=== PATIENT | female | born 1955 | race Caucasian/White ===

== ENCOUNTER 2020-09-02 08:09 | Outpatient (REF) | payer MEDICARE, SELFPAY ==
--- NOTE | 2020-09-02 | US_ITS ---
EXAMINATION: ULTRASOUND ABDOMEN COMPRESSION WITH ELASTOGRAPHY CLINICAL INFORMATION: Elevated liver enzymes, abnormal CT scan on CT scan COMPARISON: CT scan of the abdomen and pelvis dated 05/13/2020. TECHNIQUE: Multiple 2-D grayscale and color Doppler ultrasound images of the abdomen were obtained along with the elastography. FINDINGS: Pancreas: Visualized pancreas is unremarkable. The tail is obscured by bowel gas shadowing. Abdominal aorta: Unremarkable. Inferior vena cava: Unremarkable. Liver: Surface nodularity and mild increased echotexture without focal abnormality. Elastography: Inconsistent values (IQR - Median 0.62). Median IQR value was 1.69 in the range of mild to moderate/F2-F3. Gallbladder: Unremarkable. Common bile duct: 0.3 cm. IMPRESSION: 1. Hepatic steatosis and cirrhosis correlates with CT findings. Fibrosis stage is in the range of mild to moderate with inconsistent sampling.
== END 2020-09-02 08:10 | disposition home or self-care (01) ==
LOC: HO.US 08:09
PROVIDERS: PCP Internal Medicine; Visit Provider Internal Medicine
DX: R74.8 Abnormal levels of other serum enzymes (principal); R93.2 Abnormal findings on diagnostic imaging of liver and biliary tract
CPT/HCPCS: 76705; 76981

== ENCOUNTER 2020-10-25 12:07 | Emergency (ER) | payer MEDICARE, SELFPAY ==
[2020-10-25 13:44] VITALS: BP 142/98; PULSE 84; RESP 18; TEMP 36.8; O2SAT 95; BMI 38.2
--- NOTE | 2020-10-25 13:57 | XR_ITS ---
EXAMINATION: XR RIBS, LEFT CLINICAL INFORMATION: Left-sided pain COMPARISON: Chest radiographs 08/14/2020, 12/08/2017 TECHNIQUE: Frontal view chest and 3 views left ribs are obtained for a total of 4 views. FINDINGS: There is no visible left rib fracture or rib destructive process. There is no pneumothorax or pleural reaction. No airspace consolidation or groundglass opacity or effusion. Heart is within limits of normal size. The hilar and mediastinal contours are unremarkable. Remainder visualized bony structures are unremarkable. XR/XR ribs LT min 3V w CXR1V IMPRESSION: 1. No visible rib fracture or rib destructive process. 2. No pneumothorax, pleural reaction, or airspace opacity.
--- NOTE | 2020-10-25 14:06 | ED_ITS ---
HPI - General Adult General Chief complaint: General Medical Stated complaint: rib pain Time Seen by Provider: 10/25/20 13:57 Source: patient Mode of arrival: ambulatory Limitations: language barrier History of Present Illness HPI narrative: 65 y/o fmbrittnee presenting with left sided trunk/rib pain for 1 week since she helped her family member move and was lifting heavy boxes. She denies fall or direct trauma but admits to lifting much heavier things than she is used to. She denies shortness of breath or chest pain. She states there is also an itchy spot under her left breast. Unknown if there is a rash or not. MD complaint: left sided rib pain Onset (ago): week(s) (1) Location: chest Radiation: non-radiation Severity: moderate Quality: aching Pain Consistency: constant Relieving factors: none Exacerbating factors: movement Associated symptoms: denies other symptoms Treatments prior to arrival: none Related Data Previous Rx's Medication Instructions Recorded calcium carbonate 600 mg (1,500 1 tab PO DAILY 30 Days #30 tab 10/07/20 mg)-vitamin D3 400 unit tablet acetaminophen [Tylenol Arthritis 650 mg PO Q8H PRN #30 tab 10/25/20 Pain] cyclobenzaprine 5 mg PO TID PRN #14 tab 10/25/20 ketoconazole 1 appl TOPICAL BID #15 g 10/25/20 lidocaine [Lidoderm] 1 patch TOPICAL DAILY #15 ea 10/25/20 Allergies Allergy/AdvReac Type Severity Reaction Status Date / Time aspirin [ASPIRIN] Allergy Unknown ITCHING, Verified 10/25/20 13:48 DIFF BREATHING, anaphylaxis penicillin V Allergy Unknown Anaphylaxis Verified 10/25/20 13:48 Penicillins [PENICILLINS] Allergy Unknown ITCHING,DIFF Unverified 08/15/20 18:34 BREATHING Jxywmrn-Pwh-Kuq Reductase Allergy Unknown ELEVATED Verified 10/25/20 13:48 Inhibitor LFT's [[id number] REDUCTASE INHIBITOR] penicillin Allergy Unknown anaphylaxis Uncoded 06/18/20 00:00 SEAFOOD Allergy Unknown ITCHING Uncoded 08/15/20 18:34 Seafood Allergy Unknown Anaphylaxis Uncoded 10/25/20 13:48 shellfish Allergy Unknown anaphylaxis Uncoded 06/18/20 00:00 Review of Systems Review of Systems: Constitutional: No Fever, No Chills Cardiovascular: No Chest Pain, No SOB Respiratory: No Cough, No Sputum, No Wheezing, No dyspnea Gastrointestinal: No Nausea, No Vomiting, No Diarrhea, No abdominal Pain Genitourinary: No Dysuria, No Urinary Frequency, No Hematuria Musculoskeletal: No joint pain, + Myalgias Skin: No Skin Lesions, + rash Heme/Lymph: No Bruising, No Lymphadenopathy PMF Past Medical History Attestation statement: The following information was validated with the patient. Medical History Arthritis Hip replacement planned Liver disease Osteoporosis Surgical History (Updated 10/25/20 @ 13:47 by Camille Spain) History of hip replacement History of hysterectomy Previous section Social History Social History Advance Directives: No Advance Directives Information Provided: No Physical Exam Vital Signs: Vital Signs: Last Vital Signs Temp 98.3 F 10/25/20 13:44 Pulse 84 10/25/20 13:44 Resp 18 10/25/20 13:44 BP 142/98 H 10/25/20 13:44 Pulse Ox 95 10/25/20 13:44 Body Mass Index 38.2 Appearance: Alert. Oriented X3. No acute distress. HEENT: normal inspection CVS: Normal heart rate and rhythm. Pulses normal. Respiratory: No respiratory distress. left lateral chest wall with mild tenderness of lower ribs. Skin: Skin warm and dry. Normal skin color. Normal skin turgor. under left breast there is a 3cm patch of erythematous flakey rash Extremities: atraumatic, normal inspection. no edema. Neuro: Oriented X 3. Non-focal Course Course Course Narrative: 65 y/o female here with left sided trunk soreness after lifting heavy boxes 1 week ago. XR was normal, no rib injury, no abnormality in the chest. Doubt PE or ACS given her recent overuse and lifting with tenderness on exam. It is likely muscular strain - will treat as such and have her follow up with her PCP. She is stable for discharge. Critical Care Time Critical Care Time Critical Care Time: No Discharge Plan Discharge Clinical Impression: Muscle strain, Fungal rash of torso Patient Disposition: Home, Self-Care Instructions: Muscle Strain (ED), Skin Yeast Infection (ED) Additional Instructions: Your x-ray today was normal. Your pain is likely due to strain of the muscles in your torso from lifting. Take the prescribed medications as needed for pain. Use the cream under your left breast to treat the start of a fungal rash. Follow up with your primary care doctor next week. If you develop chest pain, shortness of breath, or any other concerning symptom come back to the ER for further evaluation. Prescriptions: New acetaminophen [Tylenol Arthritis Pain] 650 mg tablet extended release 650 mg PO Q8H PRN (Reason: pain) Qty: 30 RF: 0 lidocaine [Lidoderm] 5 % adhesive patch,medicated 1 patch topical DAILY Qty: 15 RF: 0 cyclobenzaprine 5 mg tablet 5 mg PO TID PRN (Reason: muscle spasm) Qty: 14 RF: 0 ketoconazole 2 % cream 1 appl topical BID Qty: 15 RF: 0 No Action calcium carbonate-vitamin D3 600 mg(1,500mg) -400 unit tablet 1 tab PO DAILY 30 Days Qty: 30 RF: 3 Print Language: Sammarinese
== END 2020-10-25 14:45 | disposition home or self-care (01) ==
PROVIDERS: Emergency Provider Emergency Medicine Emergency Medical Services; PCP Internal Medicine
DX: S39.012A Strain of muscle, fascia and tendon of lower back, initial encounter (principal); R07.89 Other chest pain; B36.9 Superficial mycosis, unspecified; X50.0XXA Overexertion from strenuous movement or load, initial encounter; X50.9XXA Other and unspecified overexertion or strenuous movements or postures, initial encounter; Y93.9 Activity, unspecified; Y92.009 Unspecified place in unspecified non-institutional (private) residence as the place of occurrence of the external cause; Y99.9 Unspecified external cause status; Z79.899 Other long term (current) drug therapy
CPT/HCPCS: 71101; 99283

== ENCOUNTER 2020-12-23 12:16 | Outpatient (REF) | payer MEDICARE, SELFPAY ==
--- NOTE | 2020-12-23 13:09 | XR_ITS ---
EXAMINATION: XR KNEE, RIGHT CLINICAL INFORMATION: Knee pain COMPARISON: Right knee 02/06/2020 TECHNIQUE: Single view of the right knee. FINDINGS: There is loss of patellofemoral compartment joint space without periarticular spurring. No loose bodies, fracture or subluxation seen. There is no soft tissue swelling. XR/XR knee RT 2V IMPRESSION: Unremarkable sunrise view right knee.
== END 2020-12-23 12:17 | disposition home or self-care (01) ==
LOC: HO.HOSX 12:16
PROVIDERS: PCP Internal Medicine; Visit Provider Physician Assistant
DX: M22.2X1 Patellofemoral disorders, right knee (principal)
CPT/HCPCS: 73560; 99212

== ENCOUNTER 2021-01-13 08:28 | Outpatient (REF) | payer MEDICARE, SELFPAY ==
--- NOTE | ~2021-01-13 | MM_ITS ---
EXAMINATION: MM SCREENING DIGITAL BREAST TOMOSYNTHESIS, BILATERAL CLINICAL INFORMATION: Screening. Asymptomatic. The lifetime risk of breast cancer based on the Tyrer-Cuzick Model is 11%. COMPARISON: Mammography: 03/10/2019, 02/03/2018, 10/08/2015 TECHNIQUE: Digital breast tomosynthesis is performed in both the craniocaudal and mediolateral oblique views along with computer-aided detection (CAD). Synthesized 2D images are generated from the tomosynthesis. FINDINGS: The breasts are heterogeneously dense, which may obscure small masses (ACR BI-RADS breast composition Category c). Denser breast tissue composition is predominantly in the bilateral anterior breasts. Parenchymal pattern is similar to prior studies. There are no significant masses, abnormal calcifications, or other abnormalities. No significant changes. MM/MM tomosynthesis screening BI IMPRESSION: No significant changes from prior studies. ASSESSMENT: BI-RADS 1: Negative RECOMMENDATION: Routine annual mammography screening. This patient's information was entered into a reminder system with a target due date for their next mammogram.
== END 2021-01-13 08:29 | disposition home or self-care (01) ==
LOC: HO.MAMMO 08:28
PROVIDERS: PCP Internal Medicine; Visit Provider Internal Medicine
DX: Z12.31 Encounter for screening mammogram for malignant neoplasm of breast (principal)
CPT/HCPCS: 77063; 77067

== ENCOUNTER 2021-05-08 11:20 | Outpatient (REF) | payer MEDICARE, SELFPAY ==
[2021-05-08 12:45] LABS: Glucose Urine UA NEG (NEG); Leukocyte Esterase Urine 1+ (NEG); Nitrite Urine NEG (NEG); Specific Gravity - Urine >= 1.030 (1.005-1.025); UACC Culture Trigger YES; Urine Blood NEG (NEG); Urine Ketones NEG (NEG); Urine Protein TRACE MG/DL (NEG-TRACE)
[2021-05-08 12:48] LABS: Appearance Urine CLOUDY; Color Urine YELLOW
[2021-05-08 14:10] LABS: RBC Urine 0-2 /HPF (0)
[2021-05-08 14:11] LABS: Bacteria Urine 1+ /LPF; Calcium Oxalate Crystals Urine 2+ /LPF; Mucus Urine 2+ /LPF; Squamous Epithelial Cell Urine 2+ /LPF
== END 2021-05-08 11:21 | disposition home or self-care (01) ==
LOC: HO.LAB 11:20
PROVIDERS: PCP Internal Medicine; Visit Provider Internal Medicine
DX: R30.0 Dysuria (principal)
CPT/HCPCS: 81001; 81003; 87086

== ENCOUNTER 2021-05-26 10:25 | Emergency (ER) | payer MEDICARE, SELFPAY ==
--- NOTE | ~2021-05-26 | XR_ITS ---
EXAMINATION: CHEST WITH RIGHT RIBS. Left knee. CLINICAL INFORMATION: Status post fall. Pain COMPARISON: None TECHNIQUE: Left knee 4 views. Chest and right ribs 4 views. FINDINGS: Left knee: There is no visible acute fracture, dislocation or subluxation seen. No bony erosive changes. No abnormal joint effusion. Chest and right RIBS: The lungs are well-expanded and clear of acute pneumonic process. There is a subtle nodule suspected right midlung laterally right posterior seventh interspace. The heart size and pulmonary vascularity is normal. No gross bony abnormality seen. Multiple views of right ribs reveal no visible right rib fracture. Soft tissue nodule described on the chest x-ray is a subtle finding overlying seventh interspace. The soft tissues are normal. XR/XR knee LT 4V IMPRESSION: No acute cardiopulmonary process seen. Suspect small pulmonary nodule right midlung laterally. There is no visible right rib fractures seen. Unremarkable left knee exam
--- NOTE | ~2021-05-26 | XR_ITS ---
EXAMINATION: CHEST WITH RIGHT RIBS. Left knee. CLINICAL INFORMATION: Status post fall. Pain COMPARISON: None TECHNIQUE: Left knee 4 views. Chest and right ribs 4 views. FINDINGS: Left knee: There is no visible acute fracture, dislocation or subluxation seen. No bony erosive changes. No abnormal joint effusion. Chest and right RIBS: The lungs are well-expanded and clear of acute pneumonic process. There is a subtle nodule suspected right midlung laterally right posterior seventh interspace. The heart size and pulmonary vascularity is normal. No gross bony abnormality seen. Multiple views of right ribs reveal no visible right rib fracture. Soft tissue nodule described on the chest x-ray is a subtle finding overlying seventh interspace. The soft tissues are normal. XR/XR ribs RT min 3V w CXR1V IMPRESSION: No acute cardiopulmonary process seen. Suspect small pulmonary nodule right midlung laterally. There is no visible right rib fractures seen. Unremarkable left knee exam
[2021-05-26 11:08] VITALS: BP 116/81; PULSE 73; RESP 18; TEMP 36.7; O2SAT 96; BMI 25.4
--- NOTE | 2021-05-26 12:07 | ED.LOWEXIN ---
HPI - Extremity Injury (Lower) General Chief Complaint: Extremity Injury, Lower Stated Complaint: foot pain Time Seen by Provider: 05/26/21 12:05 Source: patient Mode of arrival: ambulatory Limitations: no limitations History of Present Illness HPI Narrative: 66 y/o female with history of DVT on Eliquis, GERD, liver disease who is presenting to the ER from home c/o left knee pain and right lateral rib pain after she slipped and fell down 2-3 stairs 3 days ago. She did not hit her head or lose consciousness. She has not been taking any medications for the pain. Pain is worse with palpation and flexion of her knee. No SOB or chest pain. No headache or neck pain. MD complaint: knee injury Onset (ago): day(s) (3) Injury: Left: knee Type of Injury: unknown Place: home Severity: moderate Relieving factors: nothing Exacerbating factors: weight bearing, movement and palpation Context: fall Associated symptoms: able to partially bear weight Other symptoms: none Treatments prior to arrival: cold therapy Related Data Previous Rx's Medication Instructions Recorded ketoconazole 1 appl TOPICAL BID #15 g 10/25/20 albuterol sulfate 90 mcg/actuation 2 puff PO Q4H PRN 90 Days #54 g 12/11/20 aerosol inhaler apixaban 5 mg tablet 5 mg PO BID 30 Days #60 tab 03/12/21 calcium carbonate 600 mg (1,500 1 tab PO DAILY #90 tab 03/12/21 mg)-vitamin D3 400 unit tablet cyclobenzaprine 5 mg tablet 5 mg PO TID PRN 30 Days #90 tab 03/12/21 fluticasone propionate 50 1 spray INTRANASAL DAILY 30 Days 03/12/21 mcg/actuation nasal #16 g spray,suspension Allergies Allergy/AdvReac Type Severity Reaction Status Date / Time aspirin [ASPIRIN] Allergy Severe ITCHING, Verified 05/26/21 11:08 DIFF BREATHING, anaphylaxis penicillin V Allergy Severe Anaphylaxis Verified 05/26/21 11:08 Ikqdqgd-Dhz-Dmp Reductase Allergy Intermediate ELEVATED Verified 05/26/21 11:08 Inhibitor LFT's [[id number]-PAD REDUCTASE INHIBITOR] Seafood Allergy Severe Anaphylaxis Uncoded 05/26/21 11:08 shellfish Allergy Severe anaphylaxis Uncoded 05/26/21 11:08 Review of Systems Review of Systems: Constitutional: No Fever, No Chills Cardiovascular: No Chest Pain, No SOB Respiratory: No Cough, No Sputum Gastrointestinal: No Nausea, No Vomiting, No Diarrhea, No abdominal Pain Genitourinary: No Dysuria, No Urinary Frequency, No Hematuria Musculoskeletal: No joint pain, No Myalgias Skin: No Skin Lesions, No rash Neuro: No Weakness, No Numbness, No Dizziness, No Headache Psych: No Anxiety/Panic, No Depression Heme/Lymph: + Bruising, No Lymphadenopathy Endocrine: No Polyuria, No Polydipsia PMF Past Medical History Medical History (Updated 05/26/21 @ 13:12 by PEE Schaefer) Arthritis DVT (deep venous thrombosis) DVT (deep venous thrombosis) GERD (gastroesophageal reflux disease) Hip replacement planned Liver disease Mild asthma Osteoporosis Surgical History History of hip replacement History of hysterectomy Previous section Social History Social History Advance Directives: Yes Advance Directives Information Provided: Yes Advance Directives on File: No Physical Exam Vital Signs: Vital Signs: Last Vital Signs Temp 98.1 F 05/26/21 11:08 Pulse 73 05/26/21 11:08 Resp 18 05/26/21 11:08 BP 116/81 05/26/21 11:08 Pulse Ox 96 05/26/21 11:08 Body Mass Index 25.4 Appearance: Alert. Oriented X3. No acute distress. HEENT: normal inspection CVS: Normal heart rate and rhythm. Pulses normal. Respiratory: No respiratory distress. Lungs are clear. Right chest wall normal inspection, no ecchymosis Skin: Skin warm and dry. Normal skin color. Normal skin turgor. No rashes. Extremities: left knee with 2cm circular ecchymotic area to inferior knee, normal ROM with pain with flexion >90 degrees. no palpable effusion, no tibial plateau tenderness Neuro: Oriented X 3. No motor deficit. No sensory deficit. Course Course Course Narrative: 66 y/o female presenting with left knee and right rib pain s/p fall 3 days ago. She is on Eliquis and has some mild ecchymosis to left knee, none on chest wall. Lungs are clear. Will get XR's for further assessment. Reevaluation(s) Reevaluation #1: XRs are negative. Likely contusions. Knee placed in MAYANK for support/compression. Supportive care with PRN tylenol and outpatient follow up. Stable for d/c home. Discharge Plan Discharge Clinical Impression: Pulmonary nodule Contusion of knee, left Qualifiers: Encounter type: initial encounter Qualified Code(s): S80.02XA - Contusion of left knee, initial encounter Contusion of rib on right side Qualifiers: Encounter type: initial encounter Qualified Code(s): S20.211A - Contusion of right front wall of thorax, initial encounter Patient Disposition: Home, Self-Care Instructions: Contusion in Adults (ED), Pulmonary Nodules (ED) Additional Instructions: Your x-rays are negative for any injuries. Your chest x-ray showed a possible small pulmonary nodule in the right lung, recommend following up with your doctor for this. Wear the MAYANK wrap on your knee as needed for support and compression. Ice several times per day and elevate your knee when possible. Take Tylenol 975 mg every 6 hours as needed for pain. Follow up with your doctor this week. If you have continued knee pain, recommend following up with acute care clinical nurse specialist. Prescriptions: No Action albuterol sulfate 90 mcg/actuation HFA aerosol inhaler 2 puff PO Q4H PRN (Reason: bronchospasm) 90 Days Qty: 54 RF: 3 ketoconazole 2 % cream 1 appl topical BID Qty: 15 RF: 0 calcium carbonate-vitamin D3 600 mg(1,500mg) -400 unit tablet 1 tab PO DAILY Qty: 90 RF: 1 cyclobenzaprine 5 mg tablet 5 mg PO TID PRN (Reason: muscle spasm) 30 Days Qty: 90 RF: 0 fluticasone propionate [Flonase Allergy Relief] 50 mcg/actuation spray,suspension 1 spray intranasal DAILY 30 Days Qty: 16 RF: 3 Eliquis 5 mg tablet 5 mg PO BID 30 Days Qty: 60 RF: 3 Referrals: Lionel Monaco MD [Physician] - 1 week (left knee pain) Interventions: ED Discharge Assessment Last Done: 05/26/21 13:24 Discharge Date/Time: 05/26/21 13:24 Print Language: Tajik
== END 2021-05-26 13:24 | disposition home or self-care (01) ==
PROVIDERS: Emergency Provider Emergency Medicine Emergency Medical Services; PCP Internal Medicine
DX: S80.02XA Contusion of left knee, initial encounter (principal); S20.211A Contusion of right front wall of thorax, initial encounter; R91.1 Solitary pulmonary nodule; Z86.718 Personal history of other venous thrombosis and embolism; Z79.01 Long term (current) use of anticoagulants; W10.9XXA Fall (on) (from) unspecified stairs and steps, initial encounter; Y93.9 Activity, unspecified; Y92.009 Unspecified place in unspecified non-institutional (private) residence as the place of occurrence of the external cause; Y99.9 Unspecified external cause status
CPT/HCPCS: 71101; 73564; 99283

== ENCOUNTER → 2021-06-13 12:59 | Outpatient (BNVA) | payer MEDICARE, SELFPAY | PROVIDERS: PCP Internal Medicine; Visit Provider Orthopaedic Surgery | DX: S80.02XA Contusion of left knee, initial encounter (principal) | CPT/HCPCS: 99212 ==

== ENCOUNTER 2023-06-04 08:37 | Emergency (ER) | payer MEDICARE, SELFPAY ==
--- NOTE | ~2023-06-04 | XR_ITS ---
EXAMINATION: XR RIBS, RIGHT CLINICAL INFORMATION: Right lower rib pain COMPARISON: None available. TECHNIQUE: 3 views of the right ribs were obtained. Chest one view FINDINGS: Lungs are clear. No consolidation, pneumothorax, or pleural effusion. The cardiomediastinal silhouette and pulmonary vasculature are normal. Osseous structures are unremarkable. Ribs are intact. No fractures are identified. XR/XR ribs RT min 3V w CXR1V IMPRESSION: Unremarkable chest and right rib series.
[2023-06-04 08:56] VITALS: BP 142/72; PULSE 79; RESP 18; TEMP 36.6; O2SAT 95; BMI 21.5
--- NOTE | 2023-06-04 09:14 | ED.GENADULT ---
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 Patient admits she was playing with her daughter's dog, however denies known injury/trauma or fall. Pain worse with deep breathing, movement and palpation. Denies chest pain, abdominal pain, nausea/vomiting, pedal edema, recent travel Onset (ago): day(s) Related Data Home Medications Medication Instructions Recorded Confirmed escitalopram oxalate 10 mg tablet 10 mg PO DAILY 05/28/21 05/28/21 Previous Rx's Medication Instructions Recorded albuterol sulfate 90 mcg/actuation 2 puff PO Q4H PRN bronchospasm 90 12/11/20 aerosol inhaler days #54 grams calcium carbonate 600 mg-vitamin 1 tab PO DAILY #90 tabs 03/12/21 D3 10 mcg (400 unit) tablet cyclobenzaprine 5 mg tablet 5 mg PO TID PRN muscle spasm 30 03/12/21 days #90 tabs apixaban 5 mg tablet (Eliquis) 5 mg PO BID 30 days #60 tabs 07/18/21 fluticasone propionate 50 1 spray intranasal DAILY #48 mL 09/17/21 mcg/actuation nasal spray,suspension Allergies Allergy/AdvReac Type Severity Reaction Status Date / Time aspirin [ASPIRIN] Allergy Severe ITCHING, Verified 06/04/23 08:54 DIFF BREATHING, anaphylaxis penicillin V Allergy Severe Anaphylaxis Verified 06/04/23 08:54 Gfsfchr-[id number]-SqI Reductase Allergy Intermediate ELEVATED Verified 06/04/23 08:54 Inhibitor LFT's [[id number] REDUCTASE INHIBITOR] Seafood Allergy Severe Anaphylaxis Uncoded 06/04/23 08:54 shellfish Allergy Severe anaphylaxis Uncoded 06/04/23 08:54 Review of Systems Review of Systems: Constitutional: No Fever, No Chills, No Fatigue, No Malaise ENT/Mouth:No Ear Pain, No Nasal Congestion, No sore throat, No Rhinorrhea, No Swallowing Difficulty Eyes: No Eye Pain, No Swelling, No Redness, No Vision Changes Cardiovascular: + Chest Pain, + SOB, No Edema, No Palpitations Respiratory: No Cough, No Sputum, No Dyspnea Gastrointestinal: No Nausea, No Vomiting, No Diarrhea, No Constipation, No Abdominal pain Genitourinary: No Hematuria, No Urinary Incontinence/retention, No Urgency, No Flank Pain Musculoskeletal: No joint pain, No Myalgias, No Joint Swelling Skin: No Skin Lesions, No rash Neuro: No Weakness, No Dizziness, No Headache Yes all other systems are reviewed and are negative Constitutional: Constitutional: Reports as per [facility] Past Medical History Attestation statement: The following information was validated with the patient. Source: old records reviewed Medical History Arthritis DVT (deep venous thrombosis) DVT (deep venous thrombosis) GERD (gastroesophageal reflux disease) Hip replacement planned Left knee pain Liver disease Mild asthma Osteoporosis Pulmonary nodule Shortness of breath Surgical History History of hip replacement History of hysterectomy Previous section Family History Family History Father Thrombosis Mother Heart attack Sister Breast cancer Social History Social History Housing: Apartment Alcohol intake: never Patient Tobacco Use Status: Never used Tobacco Smoked in Last 30 Days: No e-Cigarette/Vaping Use: Never Used Second Hand Smoke Exposure: No Use of substances other than those prescribed or required for medical reasons: No Advance Directives: No Advance Directives Information Provided: Yes service: No Current occupational status: disabled Current occupation: rt handed Physical Exam ED Vital Signs: Vital Signs - 24 hr 06/04/23 08:56 06/04/23 10:00 06/04/23 12:00 Temperature 98 F Pulse Rate 79 60 82 Respiratory Rate 18 13 14 Blood Pressure 142/72 H 131/74 98/67 Pulse Oximetry 95 100 100 Oxygen Delivery Method Room Air Room Air Room Air 06/04/23 16:01 Temperature Pulse Rate 61 Respiratory Rate 14 Blood Pressure 155/82 H Pulse Oximetry 99 Oxygen Delivery Method Room Air BMI result Body Mass Index 21.5 Const General: cooperative, healthy appearing and no acute distress Orientation/consciousness: patient oriented x3 Limitations: no limitations HENMT Head: Yes normal to inspection and Yes atraumatic Ears: hearing grossly normal bilaterally General nose exam: Normal external nose present Face and sinus: Yes normal facial exam Eyes General: appearance normal, both eyes and all related structures EOM: EOMs intact bilaterally Neck Neck: Yes normal visual inspection and Yes no meningeal signs Chest Other: + right-sided anterior lateral rib tenderness to palpation, reproducing subjective complaint. No rash/erythema, ecchymosis or flail chest Chest palpation & inspection: normal inspection of the chest, no crepitus and tenderness Resp Effort & Inspection: normal respiratory effort and no respiratory distress Auscultation: clear to auscultation bilaterally, no crackles and no wheezes Cardio Rate: regular rate Heart sounds: S1 normal heart sound present and S2 normal heart sound present GI Inspection: Yes normal to inspection Palpation (GI): Soft to palpation, nontender, no guarding and not rigid General: Yes no CVA tenderness Back/Spine/Pelvis Back: no CVA tenderness Skin Rashes: no rashes Wounds: no wounds Neuro General: patient oriented x3, tone normal and no meningeal signs Gait exam (Neuro): Normal gait present Extrem General: Yes normal to inspection, Yes no pedal edema and Yes no calf tenderness Course Course Course Narrative: -1151--mild leukopenia to 4.6. H&H stable. Chronic transaminitis. Troponin negative. -D-dimer negative > however patient high risk will obtain CTA to rule out PE XR ribs RT min 3V w CXR1V IMPRESSION: Unremarkable chest and right rib series. -1630--ED care transferred to Dr. 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 On exam vital signs stable, NAD, nontoxic appearing, right-sided anterior lateral rib tenderness reproducible, abdomen soft/nontender, lungs CTA. Concern for occult fracture vs costochondritis vs PE. Lower suspicion for pneumonia/ACS or DVT Plan: EKG, labs including D-dimer, rib XR series Please refer to course for remaining clinical decision making, interpretation of labs/imaging results, and discussions with consultants and/or family members. Differential Diagnosis Differential Diagnoses: The differential diagnosis associated with the presentation includes As above Admission/Observation Consideration of admission/observation: Escalation of care including admission/observation considered Lab Data MDM Lab Attestation statement: I reviewed the patient's lab results. 06/04/23 10:11 06/04/23 10:11 Labs: Lab Results 06/04/23 06/04/23 06/04/23 Range/Units 10:11 10:11 10:11 WBC 4.6 L (4.8-10.8) X10*3/uL RBC 3.91 L (4.20-5.50) X10*6/uL Hgb 12.3 (12.0-16.0) g/dl Hct 36.8 L (37.0-47.0) % MCV 94.1 (80.0-98.0) fL MCH 31.5 (27.0-33.0) pg MCHC 33.4 (31.0-35.0) g/dl RDW 13.9 (11.0-16.0) % Plt Count 131 L (160-400) X10*3/uL MPV 10.8 (9.4-12.3) fL Immature Gran % (Auto) 0.4 (0.0-0.4) % Neut % (Auto) 51.8 (45-73) % Lymph % (Auto) 32.1 (20-40) % [place] % (Auto) 8.8 (2-11) % Eos % (Auto) 6.0 H (0-4) % Baso % (Auto) 0.9 (0-2) % Lymph # (Auto) 1.5 (1.2-4.9) X10*3/uL [place] # (Auto) 0.4 (0.1-1.2) X10*3/uL Eos # (Auto) 0.3 (0.0-0.4) X10*3/uL Baso # (Auto) 0.0 (0.0-0.2) X10*3/uL Abs Immat Gran (auto) 0.02 (0.00-0.03) X10*3/uL Absolute Neuts (auto) 2.4 (2.0-8.3) x10*3/uL Absolute Nucleated RBC 0.000 (0.0-0.012) X10*3/uL Nucleated RBC % (auto) 0.0 (0.0-0.2) /100WBC PT 14.0 H (10.0-13.1) SEC INR 1.2 H (0.9-1.1) D-Dimer High Sensitivty 187 NG/ML Sodium 144 (135-145) mmol/L Potassium 4.1 (3.3-5.1) mmol/L Chloride 115 H (96-108) mmol/L Carbon Dioxide 23 (22-29) mmol/L Anion Gap 10 L (12-20) BUN 11 (9-16) mg/dL Creatinine 0.64 (0.5-1.4) mg/dL Estim Creat Clear Calc 62.6 Estimated GFR > 60 Random Glucose 96 (60-115) mg/dL Calcium 9.2 (8.4-10.2) mg/dL Total Bilirubin 1.3 H (0.0-1.0) mg/dL Direct Bilirubin 0.4 (0.0-0.5) mg/dL AST 53 H (5-31) U/L ALT 32 H (0-31) U/L Alkaline Phosphatase 173 H (39-117) U/L Troponin I High Sens (<3.5-17.0) ng/L B-Natriuretic Peptide (<100) pg/mL Total Protein 6.5 (6.5-8.0) g/dL Albumin 3.3 L (3.5-5.0) g/dL 06/04/23 06/04/23 Range/Units 10:11 10:11 WBC (4.8-10.8) X10*3/uL RBC (4.20-5.50) X10*6/uL Hgb (12.0-16.0) g/dl Hct (37.0-47.0) % MCV (80.0-98.0) fL MCH (27.0-33.0) pg MCHC (31.0-35.0) g/dl RDW (11.0-16.0) % Plt Count (160-400) X10*3/uL MPV (9.4-12.3) fL Immature Gran % (Auto) (0.0-0.4) % Neut % (Auto) (45-73) % Lymph % (Auto) (20-40) % [place] % (Auto) (2-11) % Eos % (Auto) (0-4) % Baso % (Auto) (0-2) % Lymph # (Auto) (1.2-4.9) X10*3/uL [place] # (Auto) (0.1-1.2) X10*3/uL Eos # (Auto) (0.0-0.4) X10*3/uL Baso # (Auto) (0.0-0.2) X10*3/uL Abs Immat Gran (auto) (0.00-0.03) X10*3/uL Absolute Neuts (auto) (2.0-8.3) x10*3/uL Absolute Nucleated RBC (0.0-0.012) X10*3/uL Nucleated RBC % (auto) (0.0-0.2) /100WBC PT (10.0-13.1) SEC INR (0.9-1.1) D-Dimer High Sensitivty NG/ML Sodium (135-145) mmol/L Potassium (3.3-5.1) mmol/L Chloride (96-108) mmol/L Carbon Dioxide (22-29) mmol/L Anion Gap (12-20) BUN (9-16) mg/dL Creatinine (0.5-1.4) mg/dL Estim Creat Clear Calc Estimated GFR Random Glucose (60-115) mg/dL Calcium (8.4-10.2) mg/dL Total Bilirubin (0.0-1.0) mg/dL Direct Bilirubin (0.0-0.5) mg/dL AST (5-31) U/L ALT (0-31) U/L Alkaline Phosphatase (39-117) U/L Troponin I High Sens < 2.7 (<3.5-17.0) ng/L B-Natriuretic Peptide 89 (<100) pg/mL Total Protein (6.5-8.0) g/dL Albumin (3.5-5.0) g/dL Independent Interpretation I performed an independent interpretation of an: EKG Radiology Impression Discussion of test interpretation with radiology: I have reviewed the radiologist's reading. External Record Review External record reviewed: Inpatient record, Office record, Outpatient record, Prior outpatient labs, Prior outpatient radiology, Primary care record and Outside ED record Tests considered The following testing was considered but not selected: As above Chronic Conditions Patient?s care impacted by: Other (DVT/PE) Discharge Plan Discharge Clinical Impression: Chest wall pain Patient Disposition: Still a Patient Prescriptions: No Action albuterol sulfate 90 mcg/actuation HFA aerosol inhaler 2 puff PO Q4H PRN (Reason: bronchospasm) 90 Days Qty: 54 3RF Eliquis 5 mg tablet 5 mg PO BID 30 Days Qty: 60 3RF fluticasone propionate 50 mcg/actuation spray,suspension 1 spray intranasal DAILY Qty: 48 0RF escitalopram oxalate 10 mg tablet 10 mg PO DAILY calcium carbonate-vitamin D3 600 mg(1,500mg) -400 unit tablet 1 tab PO DAILY Qty: 90 1RF cyclobenzaprine 5 mg tablet 5 mg PO TID PRN (Reason: muscle spasm) 30 Days Qty: 90 0RF
[2023-06-04 10:00] VITALS: BP 131/74; PULSE 60; RESP 13; O2SAT 100
--- NOTE | 2023-06-04 11:04 | PC.NURSE ---
pt reports 9/10 pain on right side.
[2023-06-04 12:00] VITALS: BP 98/67; PULSE 82; RESP 14; O2SAT 100
--- NOTE | 2023-06-04 15:04 | PC.NURSE ---
pt difficult stick, 20g iv inserted in LAC, line patent, iv med inserted without difficulty then line stopped working. 20g iv replaced with 22g R forearm. line working appropriately.
[2023-06-04 16:01] VITALS: BP 155/82; PULSE 61; RESP 14; O2SAT 99
[2023-06-04 18:59] VITALS: BP 138/74; PULSE 63; RESP 15; O2SAT 98
--- NOTE | 2023-06-04 20:03 | PC.NURSE ---
This manual writer assumed care of this Pt at 1900. Pt reports 9/10 Right sided rib pain. Upon going to medicate Pt per JAN Pt states I can't have that, I am allergic to aspirin and that medicine has aspirin , Pt reassured but declined. Provider Dr. Heath aware. D/C instructions understood, Pt ambulated independently with steady gait.
== END 2023-06-04 20:08 | disposition home or self-care (01) ==
PROVIDERS: Emergency Provider Emergency Medicine Emergency Medical Services
DX: R07.81 Pleurodynia (principal); R07.89 Other chest pain; R06.02 Shortness of breath; Z79.899 Other long term (current) drug therapy
CPT/HCPCS: 36415; 71101; 71275; 80048; 80076; 83880; 84484; 85025; 85379; 85610; 93005; 96374; 99284; J1200; Q9967